=== PATIENT | male | born 1985 | race Two or more races ===

== ENCOUNTER 2017-01-27 20:48 | Emergency (ER) | payer OTHER ==
--- NOTE | ~2017-01-27 | CR211 ---
[facility] A Service [facility] RADIOLOGY TEXT RESULTS PATIENT: MENDY ADAME LOCATION: [facility] : 83 UNIT #: [id number] AGE: [address]: Yanni Dillon MD SEX: M ORDER DR: [id number] [address] [address] [id number] MR#: [id number] Acc #: [id number] NAME: MENDY ADAME : 1985 SEX: M STUDY DATE/TIME: 01/27/2017 19:00 UNIT: [facility] ROOM: STUDY DESCRIPTION: CR Ribs Uni 2 View W PA Ch Rt Attending Physician: Yanni Dillon M.D. Ordering Physician: Yanni Dillon M.D. Primary Care Physician: No Primary Care Physician MEDICAL IMAGING REPORT This report is preliminary unless electronic signature is present EXAM PA chest with right rib series, 01/27/2017 HISTORY A 31-year-old male with right sided chest pain beginning today. COMPARISON None. FINDINGS Frontal chest and 4 views of the right ribs were performed. 5 total images. No displaced right-sided rib fractures. No other acute bony abnormality. The lungs are clear. No pneumothorax. Heart size and mediastinum are normal. IMPRESSION 1. No displaced right-sided rib fracture. No other acute bony abnormality. 2. No acute cardiopulmonary findings Dictated by... Austen Nuñez M.D. THIS IS AN ELECTRONICALLY VERIFIED REPORT Austen Nuñez M.D. at 01/28/2017 4:47 PM PAULO/pillo TD: 01/28/2017 00:27 JOB #: [id number] MEDICAL IMAGING REPORT [facility] A Service [facility] RADIOLOGY TEXT RESULTS PATIENT: MENDY ADAME LOCATION: [facility] : 83 UNIT #: [id number] AGE: [address]: Yanni Dillon MD SEX: M ORDER DR: Page 1 of 1 COPY
[2017-01-27 19:41] LABS: URINE SOURCE CLEAN CATCH
[2017-01-27 19:46] LABS: URINE APPEARANCE CLEAR; URINE BILIRUBIN NEG (NEG); URINE BLOOD NEG (NEG); URINE COLOR YELLOW; URINE GLUCOSE NEG (NEG); URINE KETONE NEG (NEG); URINE LEUKOCYTE ESTERASE NEG (NEG); URINE NITRATE NEG (NEG); URINE PH 6.5 (5-8); URINE PROTEIN NEG (NEG); URINE SPECIFIC GRAVITY 1.018 (1.003-1.035); URINE UROBILINOGEN 0.2 MG/DL (NEG)
[2017-01-27 20:01] LABS: CULTURE INDICATED? NO
== END 2017-01-27 21:12 | disposition home or self-care (01) ==
LOC: CED 20:48
PROVIDERS: Emergency Medicine
DX: S39.011A Strain of muscle, fascia and tendon of abdomen, initial encounter (principal); X58.XXXA Exposure to other specified factors, initial encounter; Y92.9 Unspecified place or not applicable
CPT/HCPCS: 71101; 81003; 99284

== ENCOUNTER 2017-02-14 20:43 | Emergency (ER) | payer SELFPAY | END 2017-02-14 22:00 | disposition left against medical advice (07) | LOC: CED 20:43 → CFTX 20:43 | DX: Z53.21 Procedure and treatment not carried out due to patient leaving prior to being seen by health care provider (principal) ==

== ENCOUNTER → 2017-03-04 | Outpatient (CLI) | payer OTHER ==
--- NOTE | ~2017-03-04 | CR126 ---
[facility] A Service of [facility] RADIOLOGY TEXT RESULTS PATIENT: MENDY ADAME LOCATION: [facility] : 83 UNIT #: [id number] AGE: [address]: LOREN SHANKS APRN SEX: M ORDER DR: [id number] [facility] [address] [place], [place] [address] [id number] O MR#: [id number] Acc #: [id number] NAME: MENDY ADAME : 1985 SEX: M STUDY DATE/TIME: 03/04/2017 15:29 UNIT: [facility] ROOM: STUDY DESCRIPTION: CR Foot Complete Min 3 View Lt Attending Physician: Loren Shanks Referring Physician: Loren Shanks Ordering Physician: Jatinder Shanks Aprn Primary Care Physician: Loren Shanks MEDICAL IMAGING REPORT This report is preliminary unless electronic signature is present EXAM Left foot 3 views HISTORY Lateral foot pain and swelling for 3 days. No history trauma. FINDINGS Three views of the left foot demonstrates a transverse fracture base of the fifth metatarsal approximately 6 mm from the proximal base. This may represent an incomplete fracture. No other deformities identified. Soft tissues show minimal soft tissue swelling lateral foot. Joint spaces maintained. Accessory ossicles noted lateral in the lateral aspect of the foot. IMPRESSION Transverse fracture base of fifth metatarsal which may represent an incomplete fracture. Dictated by... Ron Miller M.D. THIS IS AN ELECTRONICALLY VERIFIED REPORT Ron Miller M.D. at 03/05/2017 7:18 AM Aime TD: 03/04/2017 19:31 JOB #: [id number] MEDICAL IMAGING REPORT Page 1 of 1 COPY
== END | disposition home or self-care (01) ==
LOC: CRAD 14:54
DX: M79.672 Pain in left foot (principal); R60.0 Localized edema; S92.352A Displaced fracture of fifth metatarsal bone, left foot, initial encounter for closed fracture
CPT/HCPCS: 73630